=== PATIENT | female | born 1965 | race Caucasian/White ===

== ENCOUNTER → 2018-12-08 08:39 | Outpatient (CLI) | payer OTHER, SELFPAY ==
--- NOTE | 2018-12-08 14:45 | PM.TREADMILL ---
Cardiac Stress Test Report Referral & Results Date Patient Seen: 12/08/18 Requesting provider: Kenn Zavala Indication: Chest discomfort Rest ECG: Unremarkable Procedure Note: Today following both written and verbal informed consent the patient was exercised according to a standard Alexander protocol patient went for a total of 5 minutes 11 seconds achieving a maximum heart rate of 130 maximum systolic blood pressure of 160. This is approximately 7.0 METS. Exercise was terminated at this point because of patient was extremely anxious unable to continue any longer. She also complained of severe dyspnea although was able to speak in full sentences throughout. Also times patient was reassured that she was doing just fine and her symptoms abated almost completely. Patient was also given Cardiolite through a previously started Hep-Lock IV by the diagnostic imaging staff approximately 1 minute prior to the cessation of exercise. No ST-T segment changes Heart rate and blood pressure response relatively blunted but then again she was not on the treadmill for very long period function aerobic impairment rated about 20% of sedentary scale Impression: No evidence of ischemia Limited exercise capacity Significant anxiety clearly present. Whether not there is actual physical source of her symptoms is unclear Please note: Actual ECG tracings can be found in the PACS system.
--- NOTE | 2018-12-08 17:03 | DI.NM.S_ITS ---
DATE OF SERVICE: 12/08/2018 PROCEDURE: Exercise perfusion study. REASON FOR STRESS TEST: Chest pain, palpitation, smoking, hyperlipidemia. RADIOPHARMACEUTICAL: 25.8 mCi technetium-99m Myoview IV was injected at stress and 8.8 mCi technetium-99m Myoview IV was injected at rest. This is a 1-day stress protocol. CARDIAC STRESS: Patient underwent exercise perfusion study under the supervision of an attending staff. She walked on Alexander protocol for 5 minutes 11 seconds, achieved 78% of target heart rate, normal blood pressure response, 7 METs of workload, and functional aerobic impairment of +20%. She had shortness of breath during exercise and left arm discomfort. Patient was unable to continue. Baseline EKG revealed sinus rhythm with some nonspecific ST-T changes. Stress EKG did not reveal any did not reveal any obvious inducible ischemic changes. There were no significant arrhythmias. RAW DATA: There was increased subdiaphragmatic activity, especially during rest. breast shadow was seen as well. GATED STUDY: Stress LV ejection fraction 71 and resting LV ejection fraction 66% without any obvious wall motion abnormalities. Resting end-diastolic volume is 107 mL. No transient ischemic dilatation. TID ratio is 0.98, which is within normal limits. Lung/heart ratio is 0.34, which is within normal limits. MYOCARDIAL PERFUSION SCAN: Stress supine, resting supine, and stress prone images were compared to each other. Stress supine images revealed small-sized mildly decreased perfusion of basal anterior wall. During resting supine, there was about [id number]-sized mildly decreased perfusion of anterior wall anteroapex, inferolateral wall. During prone images, there was significant improvement in above-mentioned perfusion defect. However, patient remained to have minimally decreased perfusion of basal anterior wall. I don't see any obvious reversible ischemia. CONCLUSION: No obvious reversible ischemia. There is evidence of diaphragmatic, as well as breast, tissue attenuation artifact which got significantly improved during prone images. Patient has poor exercise tolerance. Patient achieved 78% of target heart rate. This is a submaximal exercise stress test. Overall, this is a low-risk myocardial perfusion scan. However, it clinical suspicion for occlusive coronary artery disease is high, consider other modalities like pharmacological perfusion study or dobutamine stress echo, etc. Jailene Kern Gopi/ doc#: [id number]/job#: [id number] dd: 12/08/2018 16:47:00 dt: 12/08/2018 16:51:00 DICTATING MD/COPIES TO: Deedee Betancourt MD COPIES MNE: JORGE
== END ==
PROVIDERS: PCP Family Medicine; Visit Provider Family Medicine
DX: R07.89 Other chest pain (principal); R00.2 Palpitations; E78.5 Hyperlipidemia, unspecified; F17.200 Nicotine dependence, unspecified, uncomplicated
CPT/HCPCS: 78452; 93016; 93017; 93018; A9502